=== PATIENT | male | born 1985 | race Caucasian/White ===

== ENCOUNTER 2016-09-20 07:40 | Emergency (ER) | payer OTHER ==
--- NOTE | 2016-09-20 08:21 | EDDOCDS ---
Physician Documentation [facility] Name: Lance Aguilar Age: 31 yrs Sex: Male : 1985 Arrival Date: 09/20/2016 Time: 07:40 Bed I2 / M2 Private MD: Eddie Peace MD Disposition: 09/20/16 08:07 Discharged to Home/Self Care. Impression: Pain in left knee - bursitis. - Condition is Stable. - Discharge Instructions: Bursitis, Knee Pain. - Prescriptions for Naprosyn 500 mg Oral Tablet - take 1 tablet by ORAL route 2 times per day take with food; 30 tablet. Prednisone 20 mg Oral Tablet - take 1 tablet by ORAL route once daily for 5 days; 5 tablet. Ultram 50 mg Oral Tablet - take 1 tablet by ORAL route every 6 hours As needed MDD: 4 tabs; 12 tablet. - Medication Reconciliation, Work Release Form - 3 day, [facility] Followup form. - Follow up: Emergency Department; When: As needed; Reason: Worsening of conditions. Follow up: [facility]; When: Call to arrange an appointment; Reason: Wound/Symptom Recheck, Recheck today's complaints, Worsening of conditions, Continuance of care. - Problem is new. - Symptoms are unchanged. Historical: - Allergies: no known allergies; - Home Meds: 1. Dexilant 60 mg oral CpDB 1 cap once daily - PMHx: GERD; - PSHx: none; - Social history: Smoking status: Electronic cigarettes No barriers to communication noted, The patient speaks fluent Cameroonian, Speaks appropriately for age. - Family history: Not pertinent. - : The pt / caregiver states he / she is not on anticoagulants. Home medication list is obtained from the patient. - Exposure Risk Screening:: None identified. Vital Signs: 09/20 07:50 BP 132 / 86; Pulse 98; Resp 16; Temp 98.6(TE); Pulse Ox 96% on R/A; Weight 129.27 kg / mlb1 284.99 lbs (R); Height 6 ft. 0 in. (182.88 cm) (R); Pain 3/10; 07:50 Body Mass Index 38.65 (129.27 kg, 182.88 cm) mlb1 MDM: 08:07 Jameson Wrap ordered. cc10 08:10 Financial registration complete. lg Signatures: Marcos White,RN RN Yanira Henderson, Reg Reg Timo Lo RN RN mlb1 Pa Guidry, DONIS DYKES cc10 MTDD
--- NOTE | 2016-09-20 08:22 | EDDOCDS ---
Nurse's Notes [facility] Name: Lance Aguilar Age: 31 yrs Sex: Male : 1985 Arrival Date: 09/20/2016 Time: 07:40 Bed I2 / M2 Private MD: Eddie Peace MD Diagnosis: Pain in left knee-bursitis Presentation: 09/20 07:47 Presenting complaint: Patient states: Left knee pain began this am, no known injury. mlb1 Adult Sepsis Screening: The patient does not have new or worsening altered mentation. Patient's respiratory rate is less than 22. Systolic blood pressure is greater than 100. Patient has a qSOFA score of 0- Negative Sepsis Screen. Suicide/Homicide risk assessment- the patient denies having any suicidal and/or homicidal ideations and does not present with any other emotional, behavioral or mental health complaints. 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 Transition of care: patient was not received from another setting of care. 07:47 Acuity: ANNALISE Level 4 mlb1 07:47 Method Of Arrival: Walkin/Carried/Asstd mlb1 Triage Assessment: 07:49 General: Appears in no apparent distress, Behavior is appropriate for age, cooperative. mlb1 Pain: Location: left knee Pain currently is 3 out of 10 on a pain scale. At worst was 10 out of 10 on a pain scale. Aggravated by weight bearing. HIV screening NA for this visit Offered previously. Historical: - Allergies: no known allergies; - Home Meds: 1. Dexilant 60 mg oral CpDB 1 cap once daily - PMHx: GERD; - PSHx: none; - Social history: Smoking status: Electronic cigarettes No barriers to communication noted, The patient speaks fluent Turkmen, Speaks appropriately for age. - Family history: Not pertinent. - : The pt / caregiver states he / she is not on anticoagulants. Home medication list is obtained from the patient. - Exposure Risk Screening:: None identified. Screenin:18 Screening information is obtained from the patient. Fall risk: No risks identified. jmk Assistance ADL's: requires no assistance with activities of daily living. Abuse/DV Screen: The patient / caregiver reports he/she is: not in a situation that causes fear, pain or injury. Nutritional screening: No deficits noted. Advance Directives: Currently, there is no health care proxy. There is no active DNR order. There is no living will. 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 Advance directive information has not previously been placed in an [facility] medical record. home support is adequate. Assessment: 08:18 General: Appears in no apparent distress. [facility] Vital Signs: 07:50 BP 132 / 86; Pulse 98; Resp 16; Temp 98.6(TE); Pulse Ox 96% on R/A; Weight 129.27 kg mlb1 (R); Height 6 ft. 0 in. (182.88 cm) (R); Pain 3/10; 07:50 Body Mass Index 38.65 (129.27 kg, 182.88 cm) [facility] Vitals: 07:50 Log In Time: September 20, 2016 at 07:39. b1 ED Course: 07:41 Patient visited by Bryanna Trimble. mm15 07:41 Patient moved to Waiting mm15 07:42 Eddie Peace is Private Physician. mm15 07:47 Patient visited by Timo Caldwell, HILLARY. mlb1 07:48 Triage Initiated mlb1 07:50 Patient visited by Timo Caldwell RN. mlb1 07:51 Patient moved to I2 / M2 mlb1 07:58 Pa Guid[facility] cc10 07:58 Baudilio Graf MD is Attending Physician. cc10 07:58 Patient visited by Pa Guidry PA-C. cc10 07:58 Patient visited by Pa Guidry PA-C. cc10 08:07 [facility] is Referral Physician. cc10 08:18 The patient / caregiver is instructed regarding the plan of care and ED course. jmk 08:18 No IV's were initiated during this patient's visit. No procedures done that require jmk assistance. Order Results: There are currently no results for this order. Outcome: 08:07 Discharge ordered by Provider. cc10 08:18 Discharge Assessment: Patient awake, alert and oriented x 3. No cognitive and/or jmk functional deficits noted. Patient verbalized understanding of disposition instructions. patient administered narcotics - no. The following High Risk Discharge criteria are identified: None. Discharged to home ambulatory. Condition: good. Discharge instructions given to patient. No special radiology studies were completed. Property :Personal belongings accompany Pt. 08:20 Patient left the ED. martha Signatures: Marcos WhiteRN RN Timo Gtz RN RN mlBryanna Conner mm15 Pa Guidry PA-C PA-C cc10 Corrections: (The following items were deleted from the chart) 07:50 07:47 Presenting complaint: Patient states: Right knee pain began this am, no known mlb1 injury mlb1 MTDD
--- NOTE | 2016-09-22 09:20 | EDDOCDS ---
Physician Documentation [facility] Name: Lance Aguilar Age: 31 yrs Sex: Male : 1985 Arrival Date: 09/20/2016 Time: 07:40 Bed I2 / M2 Private MD: Eddie Peace MD Disposition: 09/20/16 08:07 Discharged to Home/Self Care. Impression: Pain in left knee - bursitis. - Condition is Stable. - Discharge Instructions: Bursitis, Knee Pain. - Prescriptions for Naprosyn 500 mg Oral Tablet - take 1 tablet by ORAL route 2 times per day take with food; 30 tablet. Prednisone 20 mg Oral Tablet - take 1 tablet by ORAL route once daily for 5 days; 5 tablet. Ultram 50 mg Oral Tablet - take 1 tablet by ORAL route every 6 hours As needed MDD: 4 tabs; 12 tablet. - Medication Reconciliation, Work Release Form - 3 day, [facility] Followup form. - Follow up: Emergency Department; When: As needed; Reason: Worsening of conditions. Follow up: [facility]; When: Call to arrange an appointment; Reason: Wound/Symptom Recheck, Recheck today's complaints, Worsening of conditions, Continuance of care. - Problem is new. - Symptoms are unchanged. Historical: - Allergies: no known allergies; - Home Meds: 1. Dexilant 60 mg oral CpDB 1 cap once daily - PMHx: GERD; - PSHx: none; - Social history: Smoking status: Electronic cigarettes No barriers to communication noted, The patient speaks fluent Welsh, Speaks appropriately for age. - Family history: Not pertinent. - : The pt / caregiver states he / she is not on anticoagulants. Home medication list is obtained from the patient. - Exposure Risk Screening:: None identified. Vital Signs: 09/20 07:50 BP 132 / 86; Pulse 98; Resp 16; Temp 98.6(TE); Pulse Ox 96% on R/A; Weight 129.27 kg / mlb1 284.99 lbs (R); Height 6 ft. 0 in. (182.88 cm) (R); Pain 3/10; 07:50 Body Mass Index 38.65 (129.27 kg, 182.88 cm) mlb1 MDM: 08:07 Jameson Wrap ordered. cc10 08:10 Financial registration complete. lg 08:28 [facility] Payment Agreement was scanned into [employer] and attached to record. lg 14:01 T-Sheet-- Draft Copy was scanned into [employer] and attached to record. gb Signatures: Marcos White,RN RN Sonia Restrepo, Reg Reg gb ClairYanira, Reg Reg lg Timo Caldwell RN RN mlb1 Pa Guidry, PA-C PA-C cc10 The chart was reviewed and I authenticate all verbal orders and agree with the evaluation and treatment provided.Attachments: 08: [facility] Payment Agreement lg 14:01 T-Sheet-- Draft Copy gb Chart Complete MTDD
--- NOTE | 2016-09-22 09:20 | EDDOCDS ---
Nurse's Notes [facility] Name: Lance Aguilar Age: 31 yrs Sex: Male : 1985 Arrival Date: 09/20/2016 Time: 07:40 Bed I2 / M2 Private MD: Eddie Peace MD Diagnosis: Pain in left knee-bursitis Presentation: 09/20 07:47 Presenting complaint: Patient states: Left knee pain began this am, no known injury. mlb1 Adult Sepsis Screening: The patient does not have new or worsening altered mentation. Patient's respiratory rate is less than 22. Systolic blood pressure is greater than 100. Patient has a qSOFA score of 0- Negative Sepsis Screen. Suicide/Homicide risk assessment- the patient denies having any suicidal and/or homicidal ideations and does not present with any other emotional, behavioral or mental health complaints. 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 Transition of care: patient was not received from another setting of care. 07:47 Acuity: ANNALISE Level 4 mlb1 07:47 Method Of Arrival: Walkin/Carried/Asstd mlb1 Triage Assessment: 07:49 General: Appears in no apparent distress, Behavior is appropriate for age, cooperative. mlb1 Pain: Location: left knee Pain currently is 3 out of 10 on a pain scale. At worst was 10 out of 10 on a pain scale. Aggravated by weight bearing. HIV screening NA for this visit Offered previously. Historical: - Allergies: no known allergies; - Home Meds: 1. Dexilant 60 mg oral CpDB 1 cap once daily - PMHx: GERD; - PSHx: none; - Social history: Smoking status: Electronic cigarettes No barriers to communication noted, The patient speaks fluent Hungarian, Speaks appropriately for age. - Family history: Not pertinent. - : The pt / caregiver states he / she is not on anticoagulants. Home medication list is obtained from the patient. - Exposure Risk Screening:: None identified. Screenin:18 Screening information is obtained from the patient. Fall risk: No risks identified. jmk Assistance ADL's: requires no assistance with activities of daily living. Abuse/DV Screen: The patient / caregiver reports he/she is: not in a situation that causes fear, pain or injury. Nutritional screening: No deficits noted. Advance Directives: Currently, there is no health care proxy. There is no active DNR order. There is no living will. There is no Power of Song Writer. Advance directive information has not previously been placed in an [facility] medical record. home support is adequate. Assessment: 08:18 General: Appears in no apparent distress. k Vital Signs: 07:50 BP 132 / 86; Pulse 98; Resp 16; Temp 98.6(TE); Pulse Ox 96% on R/A; Weight 129.27 kg mlb1 (R); Height 6 ft. 0 in. (182.88 cm) (R); Pain 3/10; 07:50 Body Mass Index 38.65 (129.27 kg, 182.88 cm) b1 Vitals: 07:50 Log In Time: September 20, 2016 at 07:39. mlb1 ED Course: 07:41 Patient visited by Bryanna Trimble. mm15 07:41 Patient moved to Waiting mm15 07:42 Eddie Peace is Private Physician. mm15 07:47 Patient visited by Timo Caldwell, RN. mlb1 07:48 Triage Initiated mlb1 07:50 Patient visited by Timo Caldwell, HILLARY. mlb1 07:51 Patient moved to I2 / M2 mlb1 07:58 Pa Guidry [facility]-C [facility] cc10 07:58 Baudilio Graf MD is Attending Physician. cc10 07:58 Patient visited by Pa Guidry PA-C. cc10 07:58 Patient visited by Pa Guidry PA-C. cc10 08:07 [facility] is Referral Physician. cc10 08:18 The patient / caregiver is instructed regarding the plan of care and ED course. jmk 08:18 No IV's were initiated during this patient's visit. No procedures done that require jmk assistance. 08:27 Patient name changed from Lance\S\S\S\Lauren\S\ to Lance\S\Shane\S\Nickman. EDMS 08:28 [facility] Payment Agreement was scanned into [employer] and attached to record. lg 14:01 T-Sheet-- Draft Copy was scanned into [employer] and attached to record. gb Order Results: There are currently no results for this order. Outcome: 08:07 Discharge ordered by Provider. cc10 08:18 Discharge Assessment: Patient awake, alert and oriented x 3. No cognitive and/or jmk functional deficits noted. Patient verbalized understanding of disposition instructions. patient administered narcotics - no. The following High Risk Discharge criteria are identified: None. Discharged to home ambulatory. Condition: good. Discharge instructions given to patient. No special radiology studies were completed. Property :Personal belongings accompany Pt. 08:20 Patient left the ED. martha Signatures: Dispatcher [employer] EDMS Marcos White,RN RN Sonia Restrepo, Reg Reg gb Yanira Self, Reg Reg lg Timo Caldwell RN RN mlb1 Bryanna Trimble mm15 Pa Guidry, PA-C PA-C cc10 Corrections: (The following items were deleted from the chart) 07:50 07:47 Presenting complaint: Patient states: Right knee pain began this am, no known mlb1 injury mlb1 Chart Complete MTDD
--- NOTE | 2016-09-22 09:20 | EDDOCDS ---
Physician Documentation [facility] Name: Lance Aguilar Age: 31 yrs Sex: Male : 1985 Arrival Date: 09/20/2016 Time: 07:40 Bed I2 / M2 Private MD: Eddie Peace MD Disposition: 09/20/16 08:07 Discharged to Home/Self Care. Impression: Pain in left knee - bursitis. - Condition is Stable. - Discharge Instructions: Bursitis, Knee Pain. - Prescriptions for Naprosyn 500 mg Oral Tablet - take 1 tablet by ORAL route 2 times per day take with food; 30 tablet. Prednisone 20 mg Oral Tablet - take 1 tablet by ORAL route once daily for 5 days; 5 tablet. Ultram 50 mg Oral Tablet - take 1 tablet by ORAL route every 6 hours As needed MDD: 4 tabs; 12 tablet. - Medication Reconciliation, Work Release Form - 3 day, [facility] Followup form. - Follow up: Emergency Department; When: As needed; Reason: Worsening of conditions. Follow up: [facility]; When: Call to arrange an appointment; Reason: Wound/Symptom Recheck, Recheck today's complaints, Worsening of conditions, Continuance of care. - Problem is new. - Symptoms are unchanged. Historical: - Allergies: no known allergies; - Home Meds: 1. Dexilant 60 mg oral CpDB 1 cap once daily - PMHx: GERD; - PSHx: none; - Social history: Smoking status: Electronic cigarettes No barriers to communication noted, The patient speaks fluent Gambian, Speaks appropriately for age. - Family history: Not pertinent. - : The pt / caregiver states he / she is not on anticoagulants. Home medication list is obtained from the patient. - Exposure Risk Screening:: None identified. Vital Signs: 09/20 07:50 BP 132 / 86; Pulse 98; Resp 16; Temp 98.6(TE); Pulse Ox 96% on R/A; Weight 129.27 kg / mlb1 284.99 lbs (R); Height 6 ft. 0 in. (182.88 cm) (R); Pain 3/10; 07:50 Body Mass Index 38.65 (129.27 kg, 182.88 cm) mlb1 MDM: 08:07 Jameson Wrap ordered. cc10 08:10 Financial registration complete. lg 08:28 [facility] Payment Agreement was scanned into [employer] and attached to record. lg 14:01 T-Sheet-- Draft Copy was scanned into [employer] and attached to record. gb Signatures: Marcos White,RN RN Sonia Restrepo, Reg Reg gb ClairYanira, Reg Reg lg Timo Caldwell RN RN mlb1 Pa Guidry, PA-C PA-C cc10 The chart was reviewed and I authenticate all verbal orders and agree with the evaluation and treatment provided.Attachments: 08: [facility] Payment Agreement lg 14:01 T-Sheet-- Draft Copy gb Chart Complete MTDD
== END 2016-09-20 08:20 | disposition home or self-care (01) ==
LOC: M ED 07:40
DX: M70.52 Other bursitis of knee, left knee (principal); K21.9 Gastro-esophageal reflux disease without esophagitis; Z79.899 Other long term (current) drug therapy

== ENCOUNTER 2022-01-08 10:22 | Inpatient (IN) | payer MEDICAID, OTHER ==
[~2022-01-08] VITALS: Ht 182.9 cm; Wt 138.9 kg
[2022-01-08] MEDS ORDERED: AMPH1TAB2 PO (10:43)
[2022-01-08 11:44] LABS: HEMATOCRIT 46.2 % (42.0-52.0); HEMOGLOBIN 15.7 g/dl (13.5-17.5); MEAN CORPUSCULAR HEMOGLOBIN 29.6 pg (27.0-33.0); MEAN CORPUSCULAR VOLUME 87.2 fl (80.0-96.0); PLATELET COUNT, AUTOMATED 233 10^3/uL (150-450); WHITE BLOOD COUNT 8.9 10^3/uL (4.0-10.0)
[2022-01-08 12:17] LABS: AMPHETAMINES LEVEL URINE POSITIVE (NEGATIVE); BARBITURATES URINE NEGATIVE (NEGATIVE); BENZODIAZEPINES URINE NEGATIVE (NEGATIVE); CANNABINOIDS URINE NEGATIVE (NEGATIVE); COCAINE METABOLITE URINE NEGATIVE (NEGATIVE); METHADONE URINE NEGATIVE (NEGATIVE); OPIATES URINE NEGATIVE (NEGATIVE); PHENCYCLIDINE URINE NEGATIVE (NEGATIVE)
[2022-01-08 12:28] LABS: ACETAMINOPHEN LEVEL < 2.0 UG/ML (10.0-30.0); ALBUMIN 4.3 GM/DL (3.2-5.2); ALT/SGPT 78 U/L (12-78); BILIRUBIN,DIRECT 0.2 MG/DL (0.0-0.2); BILIRUBIN,TOTAL 0.6 MG/DL (0.2-1.0); BLOOD UREA NITROGEN 16 MG/DL (7-18); CARBON DIOXIDE LEVEL 25 MEQ/L (21-32); CHLORIDE LEVEL 109 MEQ/L (98-107); CREATININE FOR GFR 1.31 MG/DL (0.70-1.30); ETHYL ALCOHOL (ETHANOL) < 0.003 % (0.000-0.010); GLOMERULAR FILTRATION RATE > 60.0 (>60); GLUCOSE, FASTING 105 MG/DL (70-100); SALICYLATE LEVEL 2.3 MG/DL (5.0-30.0); SODIUM LEVEL 140 MEQ/L (136-145); TOTAL PROTEIN 7.6 GM/DL (6.4-8.2)
[2022-01-08] MEDS ORDERED: CALCIUM CARBONATE 500 MG CHEW U/D PO ONE (15:05)
[2022-01-08] MEDS ORDERED: ADDE30TA PO (15:22)
[2022-01-08] MEDS ORDERED: HOME MED LIST COMPLETE! XX SCH (16:05)
[2022-01-08] MEDS ORDERED: LORazepam 2 MG TAB PO STA (20:44)
[2022-01-08] MEDS ORDERED: FAMOTIDINE 20 MG TAB PO ONE (20:45)
[2022-01-09 07:10] LABS: RSV AMPLIFICATION NEGATIVE (NEGATIVE)
[2022-01-09] MEDS ORDERED: OMEPRAZOLE 20MG CAP PO ONE (10:00)
[2022-01-09] MEDS ORDERED: MOM 30ML SUSPENSION UDC PO PRN (15:40)
[2022-01-09] MEDS ORDERED: OLANZapine 5 MG TAB PO PRN (15:40)
[2022-01-09 22:08] VITALS: BP 146/98
[2022-01-10 06:17] VITALS: BP 158/79
[2022-01-10] MEDS ORDERED: ADDERALL 5 MG TAB PO SCH (09:00)
[2022-01-10] MEDS: MAALOX 30 ML SUSP *UDC PO PRN ×2 (14:25→21:49)
[2022-01-10] MEDS ORDERED: ADDERALL 5 MG TAB PO ONE (16:00)
[2022-01-10 17:13] VITALS: BP 144/76
[2022-01-10] MEDS: traZODone 50 MG TAB PO PRN (21:51)
[2022-01-11 06:29] VITALS: BP 133/70
[2022-01-11] MEDS: NICOTINE 21MG/24HR 1 EA TRANSDERMAL TD SCH (08:56)
[2022-01-11] MEDS: MAALOX 30 ML SUSP *UDC PO PRN ×2 (08:57→14:03)
[2022-01-11] MEDS ORDERED: LORazepam 2 MG/ML VIAL IM PRN (09:55)
[2022-01-11] MEDS: risperiDONE 2 MG TAB PO SCH ×2 (10:04→20:07)
[2022-01-11] MEDS ORDERED: LORazepam 2 MG TAB PO PRN (10:45)
[2022-01-11] MEDS: ACETAMINOPHEN TAB 650MG DOSE (2X325MG) PO PRN (20:09)
[2022-01-12 06:48] VITALS: BP 151/88
[2022-01-12 08:03] LABS: CHOLESTEROL RISK RATIO 3.368 (<5)
[2022-01-12] MEDS: risperiDONE 2 MG TAB PO SCH ×2 (08:17→21:00)
[2022-01-12] MEDS: NICOTINE 21MG/24HR 1 EA TRANSDERMAL TD SCH (08:17)
[2022-01-12] MEDS: OMEGA-3 1000MG CAPSULE PO SCH ×2 (13:59→21:27)
[2022-01-12] MEDS: MAALOX 30 ML SUSP *UDC PO PRN ×2 (15:14→21:27)
[2022-01-12 16:24] LABS: BLOOD UREA NITROGEN 17 MG/DL (7-18); CARBON DIOXIDE LEVEL 27 MEQ/L (21-32); CHLORIDE LEVEL 111 MEQ/L (98-107); CREATININE FOR GFR 1.42 MG/DL (0.70-1.30); GLOMERULAR FILTRATION RATE > 60.0 (>60); GLUCOSE, FASTING 107 MG/DL (70-100); SODIUM LEVEL 142 MEQ/L (136-145)
[2022-01-12 18:00] VITALS: BP 166/88
[2022-01-12] MEDS: traZODone 50 MG TAB PO PRN (21:27)
[2022-01-13 06:00] VITALS: BP 150/98
[2022-01-13] MEDS: risperiDONE 2 MG TAB PO SCH ×2 (09:00→22:23)
[2022-01-13] MEDS: MAALOX 30 ML SUSP *UDC PO PRN ×3 (10:25→22:23)
[2022-01-13] MEDS: OMEGA-3 1000MG CAPSULE PO SCH ×2 (10:26→22:23)
[2022-01-13] MEDS: NICOTINE 21MG/24HR 1 EA TRANSDERMAL TD SCH (10:27)
[2022-01-13 18:00] VITALS: BP 139/87
[2022-01-13] MEDS: ACETAMINOPHEN TAB 650MG DOSE (2X325MG) PO PRN (18:23)
[2022-01-13] MEDS: traZODone 50 MG TAB PO PRN (22:23)
[2022-01-14] MEDS: risperiDONE 2 MG TAB PO SCH ×2 (09:41→20:49)
[2022-01-14] MEDS: OMEGA-3 1000MG CAPSULE PO SCH ×2 (09:41→20:49)
[2022-01-14] MEDS: NICOTINE 21MG/24HR 1 EA TRANSDERMAL TD SCH (09:42)
[2022-01-14] MEDS: ALBUTEROL 90 MCG/ACT 8GM HFA INHALER INH PRN (15:32)
[2022-01-14] MEDS: MAALOX 30 ML SUSP *UDC PO PRN (15:36)
[2022-01-14] MEDS ORDERED: OMEPRAZOLE 20MG CAP PO ONE (16:00)
[2022-01-14 16:02] VITALS: BP 146/81
[2022-01-14] MEDS: traZODone 50 MG TAB PO PRN (20:49)
[2022-01-15 06:07] VITALS: BP 144/75
[2022-01-15] MEDS: OMEPRAZOLE 20MG CAP PO SCH (07:55)
[2022-01-15] MEDS: OMEGA-3 1000MG CAPSULE PO SCH ×2 (07:55→20:04)
[2022-01-15] MEDS: NICOTINE 21MG/24HR 1 EA TRANSDERMAL TD SCH (07:56)
[2022-01-15] MEDS: risperiDONE 2 MG TAB PO SCH ×2 (07:56→20:04)
[2022-01-15] MEDS: ALBUTEROL 90 MCG/ACT 8GM HFA INHALER INH PRN ×2 (12:27→20:03)
[2022-01-15 15:20] VITALS: BP 144/82
[2022-01-15] MEDS: traZODone 50 MG TAB PO PRN (21:24)
[2022-01-15] MEDS: ACETAMINOPHEN TAB 650MG DOSE (2X325MG) PO PRN (21:26)
[2022-01-16 06:29] VITALS: BP 137/89
[2022-01-16] MEDS: OMEPRAZOLE 20MG CAP PO SCH (08:13)
[2022-01-16] MEDS: risperiDONE 2 MG TAB PO SCH (08:14)
[2022-01-16] MEDS: OMEGA-3 1000MG CAPSULE PO SCH (08:14)
[2022-01-16] MEDS: NICOTINE 21MG/24HR 1 EA TRANSDERMAL TD SCH (08:14)
[2022-01-16] MEDS ORDERED: NICO21PAT TD (09:36)
[2022-01-16] MEDS ORDERED: FISH1CAP26 PO (09:36)
[2022-01-16] MEDS ORDERED: OMEP-173 PO (09:36)
[2022-01-16] MEDS ORDERED: RISP-9 PO (09:36)
== END 2022-01-16 12:48 | disposition home or self-care (01) | DRG 751 ==
LOC: M ED 10:22 → M ED INP 01-09 15:38 → M PSY 01-09 20:49
PROVIDERS: ADMIT Student in an Organized Health Care Education/Training Program; ATTEND Student in an Organized Health Care Education/Training Program
DX: F29 Unspecified psychosis not due to a substance or known physiological condition (principal); F90.9 Attention-deficit hyperactivity disorder, unspecified type; F17.210 Nicotine dependence, cigarettes, uncomplicated; Z63.5 Disruption of family by separation and divorce; Z79.899 Other long term (current) drug therapy; Z20.822 Contact with and (suspected) exposure to COVID-19; R45.851 Suicidal ideations; Z91.14 Patient's other noncompliance with medication regimen

== ENCOUNTER 2022-01-24 06:04 | Inpatient (IN) | payer MEDICAID, OTHER ==
[~2022-01-24] VITALS: Ht 182.9 cm; Wt 134.1 kg
[~2022-01-24 06:04] MED LIST: ADDE30TA PO; AMPH1TAB2 PO; FISH1CAP26 PO; NICO21PAT TD; OMEP-173 PO; RISP-9 PO
[2022-01-24 07:05] LABS: HEMOGLOBIN 15.5 g/dl (13.5-17.5); MEAN CORPUSCULAR HEMOGLOBIN 29.5 pg (27.0-33.0); MEAN CORPUSCULAR HGB CONC 33.7 g/dl (32.0-36.5); MEAN CORPUSCULAR VOLUME 87.5 fl (80.0-96.0); PLATELET COUNT, AUTOMATED 212 10^3/uL (150-450); RED BLOOD COUNT 5.26 10^6/uL (4.30-6.10); WHITE BLOOD COUNT 12.8 10^3/uL (4.0-10.0)
[2022-01-24 07:37] LABS: AMPHETAMINES LEVEL URINE POSITIVE (NEGATIVE); BARBITURATES URINE NEGATIVE (NEGATIVE); BENZODIAZEPINES URINE NEGATIVE (NEGATIVE); CANNABINOIDS URINE NEGATIVE (NEGATIVE); COCAINE METABOLITE URINE NEGATIVE (NEGATIVE); METHADONE URINE NEGATIVE (NEGATIVE); OPIATES URINE NEGATIVE (NEGATIVE); PHENCYCLIDINE URINE NEGATIVE (NEGATIVE); RSV AMPLIFICATION NEGATIVE (NEGATIVE)
[2022-01-24 07:42] LABS: ACETAMINOPHEN LEVEL < 2.0 UG/ML (10.0-30.0); ALBUMIN 4.1 GM/DL (3.2-5.2); ALT/SGPT 84 U/L (12-78); BILIRUBIN,DIRECT 0.2 MG/DL (0.0-0.2); BILIRUBIN,TOTAL 0.5 MG/DL (0.2-1.0); BLOOD UREA NITROGEN 21 MG/DL (7-18); CALCIUM LEVEL 9.6 MG/DL (8.5-10.1); CARBON DIOXIDE LEVEL 23 MEQ/L (21-32); CHLORIDE LEVEL 110 MEQ/L (98-107); CREATININE FOR GFR 1.14 MG/DL (0.70-1.30); ETHYL ALCOHOL (ETHANOL) < 0.003 % (0.000-0.010); GLOMERULAR FILTRATION RATE > 60.0 (>60); GLUCOSE, FASTING 102 MG/DL (70-100); POTASSIUM SERUM 4.1 MEQ/L (3.5-5.1); SALICYLATE LEVEL 1.9 MG/DL (5.0-30.0); SODIUM LEVEL 141 MEQ/L (136-145); TOTAL PROTEIN 7.5 GM/DL (6.4-8.2)
[2022-01-24] MEDS ORDERED: AMPH1TAB2 PO (10:05)
[2022-01-24] MEDS ORDERED: OMEP40CA5 PO (10:05)
[2022-01-24] MEDS ORDERED: RISP2TAB32 PO (10:05)
[2022-01-24] MEDS ORDERED: NICO21DI38 TD (10:05)
[2022-01-24] MEDS ORDERED: [UNRECOGNIZED DRUG - OTHER] (10:06)
[2022-01-24] MEDS ORDERED: HOME MED LIST COMPLETE! XX SCH (10:10)
[2022-01-24] MEDS ORDERED: OLANZapine ORAL DISINTEGRATING TAB 5MG PO ONE (18:45)
[2022-01-24] MEDS ORDERED: GI COCKTAIL 50ML BTL(HYOSCYAMINE/MAALOX/LIDOCAINE VISCOUS)(1:3:1) PO ONE (21:50)
[2022-01-24] MEDS ORDERED: OMEPRAZOLE 20MG CAP PO ONE (21:50)
[2022-01-24] MEDS: risperiDONE 2 MG TAB PO SCH (21:55)
[2022-01-25] MEDS ORDERED: ADDERALL 5 MG TAB PO SCH (09:00)
[2022-01-25] MEDS ORDERED: OMEPRAZOLE 20MG CAP PO SCH (09:00)
[2022-01-25] MEDS ORDERED: NICOTINE 21MG/24HR 1 EA TRANSDERMAL TD SCH (09:00)
[2022-01-25] MEDS: risperiDONE 2 MG TAB PO SCH ×2 (11:06→20:07)
[2022-01-25] MEDS ORDERED: BACITRACIN OINTMENT 30GM TUBE TOP PRN (16:25)
[2022-01-25] MEDS: OLANZapine ORAL DISINTEGRATING TAB 5MG PO SCH (21:00)
[2022-01-25] MEDS ORDERED: OLANZapine ORAL DISINTEGRATING TAB 5MG PO PRN (23:00)
[2022-01-25] MEDS ORDERED: MOM 30ML SUSPENSION UDC PO PRN (23:00)
[2022-01-25] MEDS ORDERED: MAALOX 30 ML SUSP *UDC PO PRN (23:00)
[2022-01-26 03:14] VITALS: BP 137/99
[2022-01-26] MEDS: NICOTINE 21MG/24HR 1 EA TRANSDERMAL TD SCH (08:54)
[2022-01-26] MEDS ORDERED: OLANZapine 5 MG TAB PO SCH (09:00)
[2022-01-26] MEDS: risperiDONE 2 MG TAB PO SCH ×2 (10:39→21:51)
[2022-01-26] MEDS: OMEPRAZOLE 20MG CAP PO SCH (10:40)
[2022-01-26] MEDS: OMEGA-3 1000MG CAPSULE PO SCH ×2 (12:53→21:51)
[2022-01-26 17:10] VITALS: BP 150/90
[2022-01-27 07:09] VITALS: BP 138/78
[2022-01-27] MEDS: NICOTINE 21MG/24HR 1 EA TRANSDERMAL TD SCH (08:55)
[2022-01-27] MEDS: OMEPRAZOLE 20MG CAP PO SCH (08:55)
[2022-01-27] MEDS: risperiDONE 2 MG TAB PO SCH ×2 (08:55→20:13)
[2022-01-27] MEDS: OMEGA-3 1000MG CAPSULE PO SCH ×2 (08:56→20:13)
[2022-01-27] MEDS: ACETAMINOPHEN TAB 650MG DOSE (2X325MG) PO PRN (08:57)
[2022-01-27 17:47] VITALS: BP 135/83
[2022-01-27] MEDS ORDERED: DOXEPIN 25 MG CAP PO ONE (20:05)
[2022-01-28 06:13] VITALS: BP 125/69
[2022-01-28] MEDS: OMEPRAZOLE 20MG CAP PO SCH (10:22)
[2022-01-28] MEDS: NICOTINE 21MG/24HR 1 EA TRANSDERMAL TD SCH (10:22)
[2022-01-28] MEDS: OMEGA-3 1000MG CAPSULE PO SCH ×2 (10:22→20:43)
[2022-01-28] MEDS: risperiDONE 2 MG TAB PO SCH (10:22)
[2022-01-28 18:31] VITALS: BP 140/87
[2022-01-28] MEDS: risperiDONE 1 MG TAB PO SCH (20:43)
[2022-01-28] MEDS: traZODone 50 MG TAB PO PRN (21:29)
[2022-01-28] MEDS: ACETAMINOPHEN TAB 650MG DOSE (2X325MG) PO PRN (21:31)
[2022-01-29 06:26] VITALS: BP 128/71
[2022-01-29] MEDS: ACETAMINOPHEN TAB 650MG DOSE (2X325MG) PO PRN ×2 (06:43→18:13)
[2022-01-29] MEDS: NICOTINE 21MG/24HR 1 EA TRANSDERMAL TD SCH (09:59)
[2022-01-29] MEDS: OMEPRAZOLE 20MG CAP PO SCH (10:00)
[2022-01-29] MEDS: risperiDONE 1 MG TAB PO SCH ×2 (10:00→20:03)
[2022-01-29] MEDS: OMEGA-3 1000MG CAPSULE PO SCH ×2 (10:00→20:03)
[2022-01-29 18:42] VITALS: BP 133/94
[2022-01-30 06:07] VITALS: BP 140/74
[2022-01-30] MEDS: risperiDONE 1 MG TAB PO SCH ×2 (08:05→21:11)
[2022-01-30] MEDS: OMEGA-3 1000MG CAPSULE PO SCH ×2 (08:05→21:11)
[2022-01-30] MEDS: NICOTINE 21MG/24HR 1 EA TRANSDERMAL TD SCH (08:05)
[2022-01-30] MEDS: OMEPRAZOLE 20MG CAP PO SCH (08:05)
[2022-01-30] MEDS: ACETAMINOPHEN TAB 650MG DOSE (2X325MG) PO PRN ×2 (12:05→21:53)
[2022-01-30 17:50] VITALS: BP 128/86
[2022-01-31 06:21] VITALS: BP 136/67
[2022-01-31] MEDS: ACETAMINOPHEN TAB 650MG DOSE (2X325MG) PO PRN ×2 (07:21→21:27)
[2022-01-31] MEDS: OMEPRAZOLE 20MG CAP PO SCH (08:38)
[2022-01-31] MEDS: OMEGA-3 1000MG CAPSULE PO SCH ×2 (08:38→20:26)
[2022-01-31] MEDS: risperiDONE 1 MG TAB PO SCH ×2 (08:39→20:27)
[2022-01-31] MEDS: NICOTINE 21MG/24HR 1 EA TRANSDERMAL TD SCH (08:40)
[2022-01-31 18:00] VITALS: BP 147/90
[2022-01-31] MEDS: traZODone 50 MG TAB PO PRN (22:29)
[2022-02-01 06:53] VITALS: BP 140/102
[2022-02-01] MEDS: OMEPRAZOLE 20MG CAP PO SCH (08:56)
[2022-02-01] MEDS: risperiDONE 1 MG TAB PO SCH ×2 (08:57→20:05)
[2022-02-01] MEDS: OMEGA-3 1000MG CAPSULE PO SCH ×2 (08:57→20:05)
[2022-02-01] MEDS: NICOTINE 21MG/24HR 1 EA TRANSDERMAL TD SCH (08:59)
[2022-02-01] MEDS: ACETAMINOPHEN TAB 650MG DOSE (2X325MG) PO PRN (16:40)
[2022-02-01 18:00] VITALS: BP 139/81
[2022-02-01] MEDS: traZODone 50 MG TAB PO PRN (21:12)
[2022-02-02 06:30] VITALS: BP 145/93
[2022-02-02] MEDS: NICOTINE 21MG/24HR 1 EA TRANSDERMAL TD SCH (09:00)
[2022-02-02] MEDS: OMEGA-3 1000MG CAPSULE PO SCH (09:35)
[2022-02-02] MEDS: risperiDONE 1 MG TAB PO SCH (09:36)
[2022-02-02] MEDS: OMEPRAZOLE 20MG CAP PO SCH (09:36)
[2022-02-02] MEDS ORDERED: RISP-8 PO ×2 (14:21→14:28)
[2022-02-02] MEDS ORDERED: TRAZ-252 PO (14:21)
[2022-02-02] MEDS ORDERED: FISH1CAP26 PO (14:21)
== END 2022-02-02 15:32 | disposition home or self-care (01) | DRG 776 ==
LOC: M ED 06:04 → M ED INP 01-25 22:58 → M PSY 01-26 03:12
PROVIDERS: ADMIT Student in an Organized Health Care Education/Training Program; ATTEND Student in an Organized Health Care Education/Training Program
DX: F15.959 Other stimulant use, unspecified with stimulant-induced psychotic disorder, unspecified (principal); F20.9 Schizophrenia, unspecified; F17.210 Nicotine dependence, cigarettes, uncomplicated; Z20.822 Contact with and (suspected) exposure to COVID-19; Z91.14 Patient's other noncompliance with medication regimen; Z79.899 Other long term (current) drug therapy; F90.9 Attention-deficit hyperactivity disorder, unspecified type